=== PATIENT | female | born 1950 | race Hispanic/Latino ===

== ENCOUNTER 2018-01-07 08:57 | Emergency (ER) | payer MEDICARE, OTHER ==
[2018-01-07 09:36] VITALS: BMI 34.0
--- NOTE | 2018-01-07 09:41 | ED PDOC ---
Arrival/HPI - General Time Seen by Provider: 01/07/18 09:35 Historian: Patient - History of Present Illness Narrative History of Present Illness (Text): 01/07/18 09:39 67yo morbidly obese female with no pmhx who present with lower back pain that radiates around to her pelvic area and then down her legs x 2days. She reports history of lower back pain, but states it usually resolves with Tylenol. this time the pain is persistent after taking Tylenol. Notes that pain is with some movements and sharp. She denies urinary/fecal incontinence, focal weakness, saddle anesthesia, trauma, fever, chills, urinary symptoms, any other complaint. Past Medical History - Provider Review Nursing Documentation Reviewed: Yes - Tetanus Immunization Tetanus Immunization: Unknown - Past Medical History Past Medical History: No Previous - Psychiatric Hx Depression: No Hx Emotional Abuse: No Hx Physical Abuse: No Hx Substance Use: No - Surgical History Hx Section: Yes - Suicidal Assessment Feels Threatened In Home Enviroment: No Family/Social History - Physician Review Nursing Documentation Reviewed: Yes Family/Social History: Unknown Family HX Hx Alcohol Use: No Hx Substance Use: No Allergies/Home Meds Allergies/Adverse Reactions: Allergies tramadol Allergy (Mild, Verified 01/07/18 09:37) VOMITING Review of Systems - Physician Review All systems were reviewed & negative as marked: Yes - Review of Systems Constitutional: Normal Eyes: Normal ENT: Normal Respiratory: Normal Cardiovascular: Normal Gastrointestinal: Normal Genitourinary Female: Normal Musculoskeletal: Back Pain Skin: Normal Neurological: Normal Endocrine: Normal Hemo/Lymphatic: Normal Psychiatric: Normal Physical Exam Vital Signs Reviewed: Yes Vital Signs Temp Pulse Resp BP Pulse Ox 01/07/18 13:10 98.0 F 72 19 150/70 99 01/07/18 13:09 98.0 F 70 18 150/80 99 01/07/18 09:42 170/71 H 01/07/18 09:40 97.6 F 68 18 100 Temperature: Afebrile Blood Pressure: Normal Pulse: Regular Respiratory Rate: Normal Appearance: Positive for: Well-Appearing, Non-Toxic, Comfortable Pain Distress: None Mental Status: Positive for: Alert and Oriented X 3 - Systems Exam Head: Present: Atraumatic, Normocephalic Pupils: Present: PERRL Extroacular Muscles: Present: EOMI Conjunctiva: Present: Normal Mouth: Present: Moist Mucous Membranes Neck: Present: Normal Range of Motion Respiratory/Chest: Present: Clear to Auscultation, Good Air Exchange. No: Respiratory Distress, Accessory Muscle Use Cardiovascular: Present: Regular Rate and Rhythm, Normal S1, S2. No: Murmurs Abdomen: No: Tenderness, Distention, Peritoneal Signs Back: Present: Midline Tenderness, Pain with Leg Raise (Right leg). No: Paraspinal Tenderness Upper Extremity: Present: Normal Inspection. No: Cyanosis, Edema Lower Extremity: Present: Normal Inspection. No: Edema Neurological: Present: GCS=15, CN II-XII Intact, Speech Normal Skin: Present: Warm, Dry, Normal Color. No: Rashes Psychiatric: Present: Alert, Oriented x 3, Normal Insight, Normal Concentration Medical Decision Making ED Course and Treatment: 01/07/18 20:15 PT presented to ED for stated history. Her pain improved in ED, but she stated she is still in pain. 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 Minor multilevel degenerative spondylosis as described above. UA- +Large leuk, WBC Result was DW the pt. She was treated with keflex. Naprosyn and flexeril given for pain and referred to the clinic. - Lab Interpretations Lab Results: Lab Results 01/07/18 11:55: Urine Color Yellow, Urine Appearance Clear, Urine pH 6.0, Ur Specific [place] 1.025, Urine Protein Negative, Urine Glucose (UA) Negative, Urine Ketones Negative, Urine Blood Negative, Urine Nitrate Negative, Urine Bilirubin Negative, Urine Urobilinogen 0.2, Ur Leukocyte Esterase Large H, Urine RBC 1 - 3, Urine WBC 25 - 30, Ur Epithelial Cells 6 - 8, Amorphous Sediment Few, Urine Bacteria Many, Urine Other Uyeast - RAD Interpretation Radiology Orders: 01/07/18 09:37 LS SPINE WITH OBL > 18 YRS OLD [RAD] Stat - Medication Orders Current Medication Orders: Discontinued Medications Cephalexin Monohydrate (Keflex) 500 mg PO STAT STA PRN Reason: Protocol Stop: 01/07/18 12:22 Last Admin: 01/07/18 12:43 Dose: 500 mg Cyclobenzaprine HCl (Flexeril) 10 mg PO STAT STA Stop: 01/07/18 09:39 Last Admin: 01/07/18 10:24 Dose: 10 mg Dexamethasone (Decadron Inj) 10 mg IM STAT STA Stop: 01/07/18 11:50 Last Admin: 01/07/18 12:43 Dose: 10 mg IM Administration Charges Document 01/07/18 12:43 [email or web address] (Rec: 01/07/18 12:44 [email or web address] [id number]) Injection Site MAR Injection Site Right Deltoid Charges for Administration # of IM Administrations 1 Ketorolac Tromethamine (Toradol) 30 mg IM STAT STA Stop: 01/07/18 09:38 Last Admin: 01/07/18 10:24 Dose: 30 mg MAR Pain Assessment Document 01/07/18 10:24 [email or web address] (Rec: 01/07/18 10:24 [email or web address] [id number]) Pain Reassessment Is this a pain reassessment? No Sleep Is patient sleeping during reassessment? No Presence of Pain Presence of Pain Yes Pain Scale Used Pain Scale Used Numeric Location Pain Location Body Site Back Description Description Constant Intensity of Pain at present 7 Pain Behavior Facial Grimacing Aggravating Factors Changing Position Alleviating Factors/Management Position Change Techniques Alleviating Factors Medication IM Administration Charges Document 01/07/18 10:24 [email or web address] (Rec: 01/07/18 10:24 [email or web address] [id number]) Injection Site MAR Injection Site Left Deltoid Charges for Administration # of IM Administrations 1 Disposition/Present on Arrival - Present on Arrival Any Indicators Present on Arrival: No History of DVT/PE: No History of Uncontrolled Diabetes: No Urinary Catheter: No History Surgical Site Infection Following: None - Disposition Have Diagnosis and Disposition been Completed?: Yes Diagnosis: Back pain, UTI (urinary tract infection) Disposition: HOME/ ROUTINE Disposition Time: 12:45 Patient Plan: Discharge Condition: STABLE Discharge Instructions (ExitCare): Urinary Tract Infections in Adults, Low Back Pain (DC) Additional Instructions: Follow up with the clinic Drink plenty of fluid and take cranberry supplement Return to ED for any new or worsening symptoms Prescriptions: Cephalexin [cephalexin] 500 mg PO QID #28 cap Cyclobenzaprine [Cyclobenzaprine HCl] 10 mg PO BID #10 tab Naproxen [Naprosyn] 500 mg PO BID #20 tablet Referrals: Rosario Salgado MD [Medical Doctor] - Follow up with primary Forms: [employer] (Maltese)
[2018-01-07 12:06] LABS: URINE BILIRUBIN NEGATIVE (NEGATIVE); URINE BLOOD NEGATIVE (NEGATIVE); URINE GLUCOSE (UA) NEGATIVE (NEGATIVE); URINE LEUKOCYTE ESTERASE LARGE Leu/uL (NEGATIVE); URINE PROTEIN NEGATIVE mg/dL (<30 mg/dL); URINE UROBILINOGEN 0.2 E.U./dL (<1 E.U./dL)
[2018-01-07 12:09] LABS: URINE APPEARANCE CLEAR (CLEAR); URINE COLOR YELLOW (YELLOW)
[2018-01-07 12:12] LABS: URINE AMORPHOUS SEDIMENT FEW; URINE BACTERIA MANY (NEG); URINE WBC 25 - 30 /hpf (0-6)
--- NOTE | 2018-01-07 12:39 | RAD ---
Date of service: 01/07/2018 PROCEDURE: Radiographs of the Lumbar Spine. HISTORY: back pain COMPARISON: No prior. FINDINGS: BONES: No acute compression fractures nor retropulsed fragments. Minor chronic appearing anterior stature loss of the T10 and T11 segments. Vertebral bodies otherwise exhibit normal stature. Vertebral bodies and facets normally aligned. DISC SPACES: Multilevel degenerative spondylosis. Changes include varying degrees of disc space narrowing more so along the posterior disc margins with endplate eburnation and small anterolateral and tiny posterior osteophyte formation. 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 Minor multilevel degenerative spondylosis as described above.
[2018-01-07 13:10] VITALS: TEMP 98; O2SAT 99
[2018-01-07 13:11] VITALS: BP 150/70; PULSE 72; RESP 19
== END 2018-01-07 13:11 | disposition home or self-care (01) ==
LOC: ED 08:57
DX: N39.0 Urinary tract infection, site not specified (principal); M54.5 Low back pain; E66.01 Morbid (severe) obesity due to excess calories
CPT/HCPCS: 72110; 81001; 87086; 96372; 99283; J1100; J1885